=== PATIENT | male | born 1960 | race Caucasian/White ===

== ENCOUNTER 2017-03-10 20:19 | Emergency (ER) | payer SELFPAY ==
[~2017-03-10] VITALS: Ht 185.4 cm; Wt 165.6 kg
[2017-03-10 21:42] VITALS: BP 139/90
== END 2017-03-10 21:42 | disposition home or self-care (01) ==
LOC: ED 20:19
DX: Z11.2 Encounter for screening for other bacterial diseases (principal); I48.91 Unspecified atrial fibrillation; Z79.01 Long term (current) use of anticoagulants
CPT/HCPCS: 90715